=== PATIENT | female | born 1990 | race Caucasian/White ===

== ENCOUNTER 2016-09-26 03:27 | Emergency (ER) | payer SELFPAY ==
[2016-09-26] MEDS ORDERED: ONDANSETRON 4 MG/2 ML VIAL IVP ONE (03:38)
[2016-09-26 03:40] VITALS: PULSE 76; RESP 16
--- NOTE | 2016-09-26 05:09 | EDPHY ---
H & P Stated Complaint: ETOH Time Seen by Provider: 09/26/16 03:32 HPI/ROS: Chief complaint: Alcohol intoxication, vomiting HPI: 25-year-old female being brought in by EMS from home after drinking Tequila with her friends this morning. Patient began vomiting. Patient's wounds were unable to get her to ambulate or to his sister to the bathroom. There is no history of falling or hitting her head. Remainder of history is unobtainable secondary to the patient's intoxication ROS: Unavailable secondary to the patient's intoxication Past medical history: Unknown Past surgical history: Unknown Physical exam: Gen: Somnolent, arousable, smells of alcohol and emesis HEENT: Nose: no rhinorrhea Eyes: PERRLA, EOMI Mouth: Moist mucosa Neck: Supple, no JVD Chest: nontender, lungs clear to auscultation Heart: S1, S2 normal, no murmur Abd: Soft, non-tender, no guarding Back: no CVA tenderness, no midline tenderness Ext: no edema, non-tender Skin: no rash Neuro: CN II-XII intact, Sensation grossly intact, Strength 5/5 in bilateral upper and lower extremities - Personal History LMP (Females 10-55): 1-7 Days Ago Current Tetanus/Diphtheria Vaccine: Yes Current Tetanus Diphtheria and Acellular Pertussis (TDAP): Yes - Medical/Surgical History Hx Asthma: No Hx Chronic Respiratory Disease: No Hx Diabetes: No Hx Cardiac Disease: No Hx Renal Disease: No Hx Cirrhosis: No Hx Alcoholism: No Hx HIV/AIDS: No Hx Splenectomy or Spleen Trauma: No Other PMH: depression - Social History Smoking Status: Current some day smoker Constitutional: Initial Vital Signs Temperature (C) 36.7 C 09/26/16 03:30 Heart Rate 76 09/26/16 03:30 Respiratory Rate 16 09/26/16 03:30 Blood Pressure 126/85 H 09/26/16 03:30 O2 Sat (%) 100 09/26/16 03:30 O2 Delivery Mode Room Air Allergies/Adverse Reactions: No Known Allergies Allergy (Unverified 09/26/16 03:38) Home Medications: Medication Instructions Recorded Celexa 09/26/16 Vyvanse 09/26/16 Medical Decision Making ED Course/Re-evaluation: 25-year-old intoxicated female presenting after drinking Tequila this morning and vomiting. Will allow her to metabolize in the emergency department. Will give IV fluids and antiemetics. Patient is now awake, ambulating unassisted bathroom. She denies any other complaints at this time. Denies other past medical history. Patient is appropriate we maintaining her airway. She is medically cleared for discharge. - Data Points Medications Given: Discontinued Medications Ondansetron HCl (Zofran) 4 mg IVP EDNOW ONE Stop: 09/26/16 03:39 Last Admin: 09/26/16 03:41 Dose: 4 mg Departure - Departure Disposition: Home, Routine, Self-Care Clinical Impression: Alcoholic intoxication Condition: Good Instructions: Alcohol Intoxication (ED) Additional Instructions: Please avoid binge drinking alcohol. Referrals: NONE *PRIMARY CARE P,. [Primary Care Provider] - As per Instructions [facility] [Outside] - As per Instructions
[2016-09-26 06:05] VITALS: O2SAT 99
[2016-09-26 06:45] VITALS: BP 105/79; TEMP 98.2
== END 2016-09-26 06:46 | disposition home or self-care (01) ==
DX: F10.129 Alcohol abuse with intoxication, unspecified (principal); F17.200 Nicotine dependence, unspecified, uncomplicated
CPT/HCPCS: 96374; J2405